=== PATIENT | female | born 1970 | race American Indian/Alaskan Native ===

== ENCOUNTER 2019-11-04 11:50 | Outpatient (CLI) | payer MEDICAID ==
[2019-11-04 12:14] LABS: Hematocrit 39.8 % (30.3-42.9); Hemoglobin 13.5 gm/dl (10.1-14.3); Mean Corpuscular HGB Conc 34 % (30-34); Mean Corpuscular Volume 85 fl (79-97); Platelet Count 337 K/mm3 (140-440); Red Blood Count 4.71 M/mm3 (3.65-5.03); Red Cell Distribution Width 13.5 % (13.2-15.2)
[2019-11-04 12:29] LABS: Alanine Aminotransferase 32 units/L (7-56); Albumin 4.2 g/dL (3.9-5); Blood Urea Nitrogen 13 mg/dL (7-17); Calcium 9.7 mg/dL (8.4-10.2); Hemolysis Index 2; Iron 100 ug/dL (37-170); Total Iron Binding Capacity 231 mcg/dL (250-450)
[2019-11-04 12:30] LABS: % Iron Saturation 43.29 %; BUN/Creatinine Ratio 26
[2019-11-04 13:07] LABS: Anisocytosis Few; Platelet Estimate Consistent w Auto; Total Cells Counted 100
== END 2019-11-04 11:51 | disposition home or self-care (01) ==
LOC: LAB 11:50
PROVIDERS: ATTEND Surgery
DX: Z00.00 Encounter for general adult medical examination without abnormal findings (principal); K30 Functional dyspepsia; D50.9 Iron deficiency anemia, unspecified; E11.9 Type 2 diabetes mellitus without complications; E61.8 Deficiency of other specified nutrient elements
CPT/HCPCS: 36415; 80053; 82306; 82607; 83036; 83550; 83970; 84425; 85007; 85025

== ENCOUNTER 2020-02-19 11:41 | Outpatient (CLI) | payer MEDICAID ==
--- NOTE | 2020-02-19 14:12 | Fluoroscopy Report ---
UPPER GI HISTORY: FUNCTIONAL DYSPEPSIA. TECHNIQUE: Single and double contrast barium technique utilized to evaluate the esophagus, stomach, and duodenal C-loop. FINDINGS: To begin the exam, swallowing was evaluated in the lateral position under direct fluorosco py. Swallowing was normal. No mucosal irregularity, mass, mass effect, or critical stenosis. There were no abnormal tertiary c ontractions as seen with dysmotility. No gastroesophageal reflux. IMPRESSION: Unremarkable exam. Fluoroscopic time: 2 minutes Number of fluoroscopic images: 16 Signer Name: Ezio Meadows Jr, MD Signed: 02/19/2020 2:07 PM Workstation Name: [id number]
== END 2020-02-19 11:42 | disposition home or self-care (01) ==
LOC: FLUORO 11:41
PROVIDERS: ATTEND Surgery
DX: K30 Functional dyspepsia (principal)
CPT/HCPCS: 74240

== ENCOUNTER 2020-03-02 06:10 | Day surgery (SDC) | payer MEDICAID ==
[2020-03-02] MEDS ORDERED: SODIUM CHLORIDE 0.9% 1000 ML 1,000 ML IV SCH (07:00)
--- NOTE | 2020-03-02 07:26 | Anesthesia Day of Surgery ---
Anesthesia Day of Surgery - Day of Surgery Patient Examined: Yes Patient H&P Reviewed: Yes Patient is NPO: Yes
--- NOTE | 2020-03-02 07:26 | Anesthesia Consultation ---
Anesthesia Consult and Med Hx Date of service: 03/02/20 - Airway Anesthetic Teeth Evaluation: Good ROM Head & Neck: Adequate Mental/Hyoid Distance: Adequate Mallampati Class: Class III Intubation Access Assessment: Possibly Difficult - Pre-Operative Health Status ASA Pre-Surgery Classification: ASA3 Proposed Anesthetic Plan: MAC - Pulmonary Hx Sleep Apnea: Yes (uses CPAP) - Gastrointestinal Hx Gastroesophageal Reflux Disease: Yes - Endocrine Hx Non-Insulin Dependent Diabetes: Yes - Other Systems Hx Obesity: Yes (Morbid obesity, BMI 49.5)
[2020-03-02] MEDS ORDERED: propofoL 200 MG/20 ML VIAL IV ONE (07:44)
[2020-03-02] MEDS ORDERED: SODIUM CHLORIDE 0.9% 1000 ML IV SOLN IV ONE (08:08)
[2020-03-02] MEDS ORDERED: LIDOCAINE MPF (2%) 20 MG/1 ML VIAL 5 ML ONE (08:11)
--- NOTE | 2020-03-02 08:25 | Discharge Summary ---
Providers - Providers Date of Admission: 03/02/2020 Date of discharge: 03/02/20 Attending physician: SHEKHAR TOMAS MD Primary care physician: CIARA ALVA MD Hospitalization Reason for admission: EGD as part of pre-op planning for bariatric surgery Procedures: EGD Hospital course: Pt presented for a pre-op EGD as part of planning for up coming bariatric surgery. Procedure was uneventful and pt recovered well and was discharged to home. Disposition: DC-01 TO HOME OR SELFCARE Core Measure Documentation - Palliative Care Palliative Care/ Comfort Measures: Not Applicable - Core Measures Any of the following diagnoses?: none Exam - Physical Exam Narrative exam: unchanged from pre-op - Constitutional Vitals: Temp Pulse Resp BP Pulse Ox 97.6 F 83 16 136/85 98 03/02/20 07:15 03/02/20 07:15 03/02/20 07:15 03/02/20 07:15 03/02/20 07:15 Plan Activity: advance as tolerated Diet: low carbohydrate Follow up with: CIARA ALVA MD [Primary Care Provider] - 7 Days
--- NOTE | 2020-03-02 08:27 | Operative Report ---
Operative Report Operative Report: DATE: 03/02/2020 SURGERY: Upper endoscopy. SURGEON: Sanam Go M.D. PROCEDURE: EGD with biopsy PRE OP DX: morbid obesity, GERD POST OP DX: morbid obesity, GERD TYPE OF ANESTHESIA: MAC. ESTIMATED BLOOD LOSS: None. COMPLICATIONS: None. SPECIMENS REMOVED: antral biopsy FINDINGS: 1. Small hiatal hernia. 2. antral gastritis 3. Otherwise, normal esophagus and first portion of duodenum. INDICATIONS:INDICATION FOR PROCEDURE: Patient is a 49-year-old female with a long history of morbid obesity. She is planned to have a weight loss procedure and is here for preoperative planning EGD. PROCEDURE DETAILS: After consent was reviewed, patient was taken back to the operating room where patient was placed in the left lateral decubitus position and a bite block was placed in the mouth. After a time-out was called, MAC anesthesia was initiated. I then passed the endoscope into her oropharynx, into her esophagus, visualized the entire esophagus, which was all within normal limits. Z-line was noted to about 40cm from incisors. I then visualized the stomach and the first portion of the duodenum and there were no abnormalities I could clearly visualize. A cold forceps biopsy of the antrum was taken and will be sent to pathology to evaluate for H.pylori. I then retroflexed the scope in the stomach and visualized the hiatus and I could see a small hiatal hernia. I then desufflated the stomach and removed the endoscope. Patient tolerated procedure well and was transferred to recovery room in good and stable condition.
[2020-03-02 09:01] VITALS: BP 119/69
--- NOTE | 2020-03-02 09:01 | Post Anesthesia Evaluation ---
- Post Anesthesia Evaluation Patient Participated: Yes Airway Patent: Yes Stable Respiratory Function: Yes Nausea/Vomiting: No Temp > 96.8F: Yes Pain Manageable: Yes Adequeate Hydration: Yes Anesthesia Complications: No Block Receding Appropriately: Not Applicable Patient on Ventilator: No
== END 2020-03-02 06:11 | disposition home or self-care (01) ==
LOC: GIO 06:10
PROVIDERS: ATTEND Surgery
DX: K21.9 Gastro-esophageal reflux disease without esophagitis (principal); E66.01 Morbid (severe) obesity due to excess calories; K44.9 Diaphragmatic hernia without obstruction or gangrene; K29.50 Unspecified chronic gastritis without bleeding; G47.30 Sleep apnea, unspecified; E11.9 Type 2 diabetes mellitus without complications; Z68.42 Body mass index [BMI] 45.0-49.9, adult; Z88.0 Allergy status to penicillin; Z98.890 Other specified postprocedural states
CPT/HCPCS: 43239; 82962; 88305; J2704; J7030

== ENCOUNTER 2020-04-29 09:00 | Outpatient (CLI) | payer MEDICAID ==
--- NOTE | 2020-04-29 10:04 | Anesthesia Consultation ---
Anesthesia Consult and Med Hx Date of service: 05/03/20 - Airway Anesthetic Teeth Evaluation: Good ROM Head & Neck: Adequate Mental/Hyoid Distance: Adequate Mallampati Class: Class II Intubation Access Assessment: Good - Pre-Operative Health Status ASA Pre-Surgery Classification: ASA3 Proposed Anesthetic Plan: General - Pulmonary Hx Respiratory Symptoms: No (+2FS) Hx Sleep Apnea: Yes - Cardiovascular System Hx Coronary Artery Disease: No - Central Nervous System Hx Seizures: Yes (Unsure, states it is possible) Hx Psychiatric Problems: No - Gastrointestinal Hx Gastroesophageal Reflux Disease: Yes (Improved now) - Endocrine Hx Non-Insulin Dependent Diabetes: Yes - Other Systems Hx Cancer: No Hx Obesity: Yes (Morbid obesity, BMI 49.5) - Additional Comments Anesthesia Medical History Comments: +Cardiac and Medical clearances
[2020-04-29 10:10] LABS: Hematocrit 36.9 % (30.3-42.9); Mean Corpuscular HGB Conc 35 % (30-34); Mean Corpuscular Volume 84 fl (79-97); Platelet Count 306 K/mm3 (140-440); Red Cell Distribution Width 13.2 % (13.2-15.2)
[2020-04-29 10:32] LABS: Alanine Aminotransferase 47 units/L (7-56); BUN/Creatinine Ratio 24; Blood Urea Nitrogen 12 mg/dL (7-17); Hemolysis Index 0
[2020-04-29 17:21] VITALS: BP 138/86
[2020-05-03] MEDS ORDERED: ENOXAPARIN 40 MG/0.4 ML INJ SUB-Q NR (06:00)
[2020-05-03] MEDS ORDERED: LACTATED RINGERS 1,000 ML IV SCH (06:00)
[2020-05-03] MEDS ORDERED: ACETAMINOPHEN 325 MG/10.15 ML ORAL LIQD UNIT DOSE PO NR (06:00)
[2020-05-03] MEDS ORDERED: metroNIDAZOLE/NS 500 MG/100 ML 500 MG/100 ML BAG IV NR (06:00)
[2020-05-03] MEDS ORDERED: GABAPENTIN 500 MG/10 ML ORAL LIQD PO NR (06:00)
[2020-05-03] MEDS ORDERED: SCOPOLAMINE TRANSDERMAL PATCH 72 HR TD SCH (10:00)
[2020-05-07] MEDS ORDERED: BUPIVACAINE/PF (0.5%) 5 MG/1 ML 30 ML VIAL INFILTRATI ONE (07:16)
[2020-05-10] MEDS ORDERED: LIDOCAINE MPF (2%) 20 MG/1 ML VIAL 5 ML ONE (07:10)
[2020-05-10] MEDS ORDERED: propofoL 200 MG/20 ML VIAL IV ONE (07:10)
[2020-05-10] MEDS ORDERED: KETAMINE/STERILE WATER 50 MG/ML SYRINGE ONE (07:10)
[2020-05-10] MEDS ORDERED: ROCURONIUM 50 MG/5 ML INJ IV ONE (08:39)
[2020-05-10] MEDS ORDERED: PHENYLEPHRINE/NS 1,000 MCG/10 ML SYRINGE (OR USE) IV ONE ×2 (08:39→09:10)
[2020-05-10] MEDS ORDERED: KETOROLAC 30 MG/1 ML INJ ONE (09:50)
[2020-05-10] MEDS ORDERED: LACTATED RINGERS 1,000 ML ONE (10:03)
[2020-05-10] MEDS ORDERED: ONDANSETRON 4 MG/2 ML INJ ONE (10:05)
[2020-05-10] MEDS ORDERED: dexAMETHasone 20 MG/5 ML VIAL ONE (10:05)
[2020-05-10] MEDS ORDERED: NEOSTIGMINE 10MG/10 ML INJ MDV ONE (10:10)
[2020-05-10] MEDS ORDERED: GLYCOPYRROLATE 0.4 MG/2 ML INJ ONE ×2 (10:10)
== END 2020-04-29 10:00 | disposition home or self-care (01) ==
LOC: LAB 09:00 → EDSTATUS 05-03 07:30
PROVIDERS: ATTEND Surgery
DX: U07.1 COVID-19 (principal); E66.01 Morbid (severe) obesity due to excess calories
CPT/HCPCS: 36415; 80053; 85027; U0003

== ENCOUNTER 2020-05-10 06:05 | Inpatient (IN) | payer MEDICAID ==
--- NOTE | 2020-05-10 06:51 | Anesthesia Day of Surgery ---
Anesthesia Day of Surgery - Day of Surgery Patient Examined: Yes Patient H&P Reviewed: Yes Patient is NPO: Yes
[2020-05-10] MEDS ORDERED: MIDAZOLAM 2 MG/2 ML INJ IV NR (07:00)
[2020-05-10] MEDS ORDERED: ENOXAPARIN 40 MG/0.4 ML INJ SUB-Q NR (07:00)
[2020-05-10] MEDS ORDERED: ceFAZolin/STERILE WATER 2 GM/20 ML SYRINGE IV NR (07:00)
[2020-05-10] MEDS ORDERED: SCOPOLAMINE TRANSDERMAL PATCH 72 HR TD NR (07:00)
[2020-05-10] MEDS ORDERED: ACETAMINOPHEN 325 MG/10.15 ML ORAL LIQD UNIT DOSE PO NR (07:00)
[2020-05-10] MEDS ORDERED: LACTATED RINGERS 1,000 ML ONE (07:07)
[2020-05-10] MEDS ORDERED: MAGNESIUM SULFATE 2 GM/50 ML BAG IV ONE (07:23)
[2020-05-10] MEDS ORDERED: ONDANSETRON 4 MG/2 ML INJ IV PRN ×2 (07:30→10:26)
[2020-05-10] MEDS ORDERED: LACTATED RINGERS 1,000 ML IV SCH (07:30)
[2020-05-10] MEDS ORDERED: HYDROmorphone 1 MG/1 ML INJ IV PRN ×2 (07:30)
[2020-05-10] MEDS ORDERED: LIDOCAINE 2%/EPINEPHRINE 1:100,000 VIAL (20 ML) INFILTRATI ONE (07:39)
[2020-05-10] MEDS ORDERED: BUPIVACAINE/PF (0.25%) 2.5 MG/ML 30 ML VIAL INFILTRATI ONE ×3 (07:39→08:56)
[2020-05-10] MEDS ORDERED: SODIUM CHLORIDE P/F VIAL 10 ML 0 ML ONE (07:39)
[2020-05-10] MEDS ORDERED: SODIUM CHLORIDE P/F VIAL 10 ML 10 ML ONE (07:40)
[2020-05-10] MEDS ORDERED: propofoL 200 MG/20 ML VIAL IV ONE (08:00)
[2020-05-10] MEDS ORDERED: NEOSTIGMINE 10MG/10 ML INJ MDV ONE (08:00)
[2020-05-10] MEDS ORDERED: GABAPENTIN 500 MG/10 ML ORAL LIQD PO NR (08:00)
[2020-05-10] MEDS ORDERED: PHENYLEPHRINE/NS 1,000 MCG/10 ML SYRINGE (OR USE) IV ONE (08:00)
[2020-05-10] MEDS ORDERED: LACTATED RINGERS 1000 ML IV SOLN ONE (08:00)
[2020-05-10] MEDS ORDERED: dexAMETHasone 20 MG/5 ML VIAL ONE (08:00)
[2020-05-10] MEDS ORDERED: ONDANSETRON 4 MG/2 ML INJ ONE (08:00)
[2020-05-10] MEDS ORDERED: LIDOCAINE MPF (2%) 20 MG/1 ML VIAL 5 ML ONE (08:00)
[2020-05-10] MEDS ORDERED: GLYCOPYRROLATE 0.4 MG/2 ML INJ ONE (08:00)
[2020-05-10] MEDS ORDERED: metroNIDAZOLE/NS 500 MG/100 ML 500 MG/100 ML BAG IV NR (08:00)
[2020-05-10] MEDS ORDERED: KETOROLAC 30 MG/1 ML INJ ONE (08:00)
[2020-05-10] MEDS ORDERED: ROCURONIUM 50 MG/5 ML INJ IV ONE (08:00)
[2020-05-10] MEDS ORDERED: KETAMINE/STERILE WATER 50 MG/ML SYRINGE ONE (08:00)
[2020-05-10] MEDS ORDERED: LIDOCAINE (1%) 10 MG/1 ML VIAL 20 ML MDV ONE (08:10)
[2020-05-10] MEDS ORDERED: LIDOCAINE (1%) 10 MG/1 ML VIAL 20 ML MDV INFILTRATI ONE (08:56)
[2020-05-10] MEDS ORDERED: SODIUM CHLORIDE 0.9% IRRIG SOLN 2000 ML IR ONE (08:57)
[2020-05-10] MEDS ORDERED: SODIUM CHLORIDE 0.9% IRR 1,500 ML BOTTLE IR ONE (08:57)
[2020-05-10] MEDS ORDERED: SUGAMMADEX SODIUM 200 MG/2 ML VIAL IV ONE (10:12)
[2020-05-10] MEDS ORDERED: hydrALAZINE 20 MG/1 ML INJ IV PRN (10:26)
[2020-05-10] MEDS ORDERED: METOCLOPRAMIDE 10 MG/2 ML INJ IV PRN (10:26)
[2020-05-10] MEDS ORDERED: MORPHINE 2 MG/1 ML INJ IV PRN (10:26)
[2020-05-10] MEDS ORDERED: SIMETHICONE 80 MG CHEW TAB PO PRN (10:26)
--- NOTE | 2020-05-10 10:43 | Operative Report ---
Operative Report Operative Report: DATE OF PROCEDURE: 05/10/2020 SURGEON: Sanam Go MD DOCTOR OF AUDIOLOGY: Juvenal Rome MD, [facility] PREOPERATIVE DIAGNOSIS: Morbid obesity. POSTOPERATIVE DIAGNOSES: Morbid obesity PROCEDURES PERFORMED: 1. Laparoscopic gastric bypass. 2. Hiatal hernia repair 3. EGD. ANESTHESIA: General endotracheal tube intubation, TAP block SPECIMENS: None. ESTIMATED BLOOD LOSS: Less than 10 mL. FINDINGS: hiatal hernia. COMPLICATIONS: None. INDICATION: Ms. Murphy is a 49-year-old female with history of morbid obesity, and obesity related co-morbidities. She presented today for gastric bypass. She signed informed consent and expressed understanding of risks and benefits. DESCRIPTION OF PROCEDURE: Patient was brought to the OR suite, laid in supine position. Bilateral lower extremity SCDs were placed. General anesthesia was induced via successful endotracheal tube intubation. Patient's abdomen was prepped and draped in sterile fashion. A veress needle was used to insuflate the abdomen to a pressure of 18mmHg via a stab incision in the in L subcostal area. Using Optiview technique, a 5-mm trocar was placed into the abdominal cavity under direct vision superior and to the left of the umbilicus. There was noted to be no gross injury to any intraabdominal structures. 4 working trocars were placed under direct visualization, 12 mm in the right mid abdomen mid clavicular line and three 5-mm trocars in the right upper quadrant, epigastric, left upper quadrant. At this time a TAP block was performed in bilateral midaxillary lines with 0.25% marcaine. There was noted to be some omental adhesions to the anterior abdominal wall that were released with harmonic scalpel. At this time, the ligament of Treitz identified and followed down approximately 75 cm and the jejunum was transected, after the omentum was split with the Harmonic scalpel . The distal segment of jejunum was then traced for approximately 100 cm and a stapled [id number] jejunojejunostomy was performed. The common enterotomy was closed with 2 firings of the endoscopic stapler. The mesenteric defect was closed with running non-absorbable v-loc suture. This anastomosis was found to be patent without kink, obstruction or bleeding. At this time, the patient was placed in steep reverse Trendelenburg position. A liver retractor was placed through the epigastric port to elevate the left lateral lobe of the liver. A small gastric pouch was formed measuring about 4cm from the hiatus with serial firings of the blue staple load. There was noted to be a hiatal hernia defect through which the proximal gastric pouch was herniating above the level of the diaphragm. The left and right crura were skeletonized, and the sac attachments released until the gastric pouch rested in the abdominal cavity without tension for about 2cm. An anterior cruraplasty was performed with a U-stitch using surg idac suture. The Deng limb was then brought in an antegastric antecolic fashion and secured with 2 stay sutures to the gastric pouch. After this, the enterotomies were made with Harmonic scalpel, and a [id number] stapled gastrojejunostomy was performed with a mechanical stapler. With a common anastamosis measuring about 20mm. After this, a 2-layer running closure using absorbable v-loc suture was done. The first being mucosal approximation. Prior to completion of the first layer, I passed an EGD scope beyond the anastomosis to act as a stent. The first layer was completed, the second was then performed. After this, the EGD was retracted slightly. A bowel clamp was placed on the proximal Deng limb. The anastomosis was submerged under saline. Via intraluminal EGD insufflation, there was noted be no bubbles in the saline indicating an air tight anastomosis. There was noted to be no obstruction or bleeding intraluminally in the pouch or the anastomosis. At this time, the scope was removed. The saline was aspirated. Tiseel was placed over the anastomosis. All trocars were removed under direct visualization and the abdomen was then desufflated. The 12mm trocars were closed at the fascial layer with #1 PDS using a suture passer device. The skin incisions were closed with 4-0 Monocryl followed by Dermabond dressings. Patient was awoken and taken to recovery in stable condition. All counts were correct.
[2020-05-10] MEDS ORDERED: diphenhydrAMINE 50 MG/ML VIAL IV ONE (11:31)
[2020-05-10] MEDS: KETOROLAC 30 MG/1 ML INJ IV SCH ×2 (11:36→16:27)
--- NOTE | 2020-05-10 12:50 | Post Anesthesia Evaluation ---
- Post Anesthesia Evaluation Patient Participated: Yes Airway Patent: Yes Stable Respiratory Function: Yes Nausea/Vomiting: Yes Temp > 96.8F: Yes Pain Manageable: Yes Adequeate Hydration: Yes Anesthesia Complications: No Block Receding Appropriately: Yes Patient on Ventilator: No
[2020-05-10] MEDS: metroNIDAZOLE/NS 500 MG/100 ML 500 MG/100 ML BAG IV SCH ×2 (16:34→23:28)
[2020-05-10] MEDS: LACTATED RINGERS 1,000 ML IV SCH (16:38)
[2020-05-10] MEDS: HYDROcodone/Acetaminophen 7.5-325MG-15ML ORAL LIQD PO PRN (23:28)
[2020-05-11 05:27] LABS: Hemoglobin 12.7 gm/dl (10.1-14.3); Lymphocytes # (Auto) 1.1 K/mm3 (1.2-5.4); Lymphocytes % (Auto) 13.3 % (13.4-35.0); Mean Corpuscular HGB Conc 34 % (30-34); Mean Corpuscular Volume 86 fl (79-97); Monocytes # (Auto) 0.5 K/mm3 (0.0-0.8); Monocytes % (Auto) 5.6 % (0.0-7.3); Platelet Count 229 K/mm3 (140-440); Red Blood Count 4.32 M/mm3 (3.65-5.03); Red Cell Distribution Width 13.2 % (13.2-15.2)
[2020-05-11] MEDS: LACTATED RINGERS 1,000 ML IV SCH (05:38)
[2020-05-11 05:42] LABS: Alanine Aminotransferase 51 units/L (7-56); Albumin 3.6 g/dL (3.9-5); Blood Urea Nitrogen 10 mg/dL (7-17); Calcium 8.8 mg/dL (8.4-10.2); Hemolysis Index 7
[2020-05-11 05:52] LABS: BUN/Creatinine Ratio 17
[2020-05-11] MEDS: KETOROLAC 30 MG/1 ML INJ IV SCH ×2 (06:02→07:52)
[2020-05-11] MEDS: metroNIDAZOLE/NS 500 MG/100 ML 500 MG/100 ML BAG IV SCH (06:02)
--- OUTSIDE RECORDS SUMMARY | 2020-05-11 07:24 | External Medical Summary ---
:1970 Author Organization [facility], [facility] Address [address] [place] [address] Care Team Providers Name Role Phone Sanam Go Unavailable [phone] PROBLEMS Type Condition ICD9-CM [id number] Onset Condition W/U Status Risk SNOM ED Notes Code Code Dates Status Code Problem Body mass Z68.43 Active confirmed 053903225 index (BMI) 50.0-59.9, adult Problem Dietary Z71.3 Active confirmed 633475692 counseling and surveillance Problem Functional K30 Active confirmed 8142831 dyspepsia Problem Sleep apnea, G47.30 Active confirmed 2348531 6 unspecified Problem Morbid E66.01 Active confirmed 957499040 (severe) obesity due to excess calories Problem Type 2 E11.9 Active confirmed 075245870 diabetes mellitus without complications Problem Gastro-esopha K21.9 Active confirmed 457475 005 geal reflux disease without esophagitis Problem Sleep G47.9 Active confirmed 82694122 disorder, unspecified ALLERGIES Allergen (clinical drug Drug/Non Drug Allergy Reaction Allergy Type Onset Date Status ingredient) documented on EMR penicillamine Penicillamine([facility] hives Drug Allergy Ac tive Code:[address]-19) IMMUNIZATIONS No Information SOCIAL HISTORY Sex Assigned At : Social History Observation Description Sex Assigned At Unknown REASON FOR REFERRAL from 1970 to 2020-05-10 Diagnosis 1 Type 2 diabetes mellitus wit hout complications (E11.9) Diagnosis 2 Morbid (severe) obesity due to excess calories (E66.01) Diagnosis 3 Gastro-esophageal reflux dis ease without esophagitis (K21.9) Diagnosis 4 Sleep disorder, unspecified (G47.9) Diagnosis 5 Body mass index (BMI) 50.0-5 9.9, adult (Z68.43) Diagnosis 6 Dietary counseling and surve illance (Z71.3) Diagnosis 7 Functional dyspepsia (K30) Diagnosis 8 Sleep apnea, unspecified (G4 7.30) Referral Organization [facility] Referring Provider First Name Sanam Referring Provider Last Name Abbi Referring Provider Specialty Surgery Referred Provider [facility], - Referral Priority Routine VITAL SIGNS No information MEDICATIONS Medication SIG (Take, Route, Frequency, Notes Start Date End Alfonso e Status Duration) Zofran 4 MG 1-2 tablet Orally every 4-6 hours Apr, Active prn nausea for 30 day(s) GlipiZIDE 10 MG 1 tablet 30 minutes before Active breakfast Orally Once a day for 30 day(s) Omeprazole 40 MG 1 capsule Orally Once a day for Apr, Active 30 day(s) Meloxicam 15 MG 1 tablet Orally Once a day for 30 Active day(s) PROCEDURES No Information RESULTS No Results REASON FOR VISIT Gastric Bypass MEDICAL (GENERAL) HISTORY Type Description Date Medical History morbid obesity Medical History diabetes mellitus Medical History Esophageal reflux Medical History chronic sleep disorder Medical History sleep apnea Surgical History (x4) 1995, 1997, 1998, 20 09 Surgical History Breast reduction 1984 Surgical History Partial Hysterectomy 2008 Hospitalization History as above Goals Section No Information Health Concerns No Information MEDICAL EQUIPMENT No Information MENTAL STATUS No Information FUNCTIONAL STATUS No Information ASSESSMENTS No Information PLAN OF TREATMENT Medication Medication Name Sig Start Date Stop Date Zofran 4 MG 1-2 tablet Orally every 4-6 hours prn nausea Apr, for 30 day(s) Omeprazole 40 MG 1 capsule Orally Once a day for 30 day(s) 2020 Referrals Referral Date Details Next Appt Details Provider Name:Sanam Go, 2020-05-0 8 01:00:00 PM, [address] [facility], [facility] Level [facility], [place], [place], [address], Insurance Providers Payer Name Payer Payer Insured Patient Coverage Coverage End Address Phone Name Relationship to Start Date Alfonso e Insured [employer] [address] [address] [phone] Ramirez Murphy [facility] MEDICAID [address] [id number]
[2020-05-11 07:57] VITALS: BP 108/61
[2020-05-11] MEDS ORDERED: ENOXAPARIN 40 MG/0.4 ML INJ SUB-Q SCH (08:00)
[2020-05-11] MEDS ORDERED: ALOGLIPTIN BENZOATE 12.5 MG PO SCH (10:00)
[2020-05-11] MEDS: HYDROcodone/Acetaminophen 7.5-325MG-15ML ORAL LIQD PO PRN (13:17)
--- NOTE | 2020-05-11 13:34 | Discharge Summary ---
Providers - Providers Date of Admission: 05/10/20 06:05 Date of discharge: 05/11/20 Attending physician: SHEKHAR TOMAS MD 05/10/20 10:26 Physical Therapy Evaluation and Treat [CONS] Routine Comment: Reason For Exam: s/p bariatric surgery Primary care physician: CIARA ALVA MD Hospitalization Reason for admission: s/p lap gastric bypass Condition: Good Procedures: lap gastric bypass with hiatal hernia repair Hospital course: 49 year old female who was admitted after an uneventful lap gastric bypass with hiatal hernia repair. She did well after surgery having vitals WNL and remained afebrile. Her labs on POD#1 were within normal limits as well. She was ambulating well and tolerating clear liquids without difficulty. Pain was well controlled. She was discharged to home to follow up in the office in two weeks. She will be on clear liquids for the first week and advance as per the bariatric protocol. Disposition: DC- TO HOME OR SELFCARE Core Measure Documentation - Palliative Care Palliative Care/ Comfort Measures: Not Applicable - Core Measures Any of the following diagnoses?: none Exam - Constitutional Vitals: Temp Pulse Resp BP Pulse Ox 98.0 F 84 17 108/61 95 05/11/20 07:12 05/11/20 07:12 05/11/20 07:52 05/11/20 07:12 05/11/20 07:12 General appearance: Present: no acute distress, obese - Respiratory Respiratory effort: normal - Cardiovascular Heart Sounds: Present: S1 & S2 - Extremities Extremities: no ischemia - Abdominal General gastrointestinal: Present: soft, non-distended, other (incisions c/d/i, appropriatley tender to palpation) Plan Activity: advance as tolerated Diet: clear liquids Wound: open to air, keep clean and dry Special Instructions: no heavy lifting Follow up with: CIARA ALVA MD [Primary Care Provider] - 7 Days
--- NOTE | 2020-05-11 16:33 | Post Anesthesia Evaluation ---
- Post Anesthesia Evaluation Patient Participated: Yes Airway Patent: Yes Stable Respiratory Function: Yes Nausea/Vomiting: No Temp > 96.8F: Yes Pain Manageable: Yes Adequeate Hydration: Yes Anesthesia Complications: No Block Receding Appropriately: Yes Patient on Ventilator: No Other Comments: Seen by Lan CARROLL
== END 2020-05-11 16:12 | disposition home or self-care (01) | DRG 621 ==
LOC: 3A 06:05 → 3B 11:10 → 3B-SURG 11:49
PROVIDERS: ADMIT Surgery; ATTEND Surgery
PROC: 0D164ZA Bypass Stomach to Jejunum, Percutaneous Endoscopic Approach (ICD-10-PCS; principal; 2020-05-10)
PROC: 0BQT4ZZ Repair Diaphragm, Percutaneous Endoscopic Approach (ICD-10-PCS; 2020-05-10)
PROC: 0DJ08ZZ Inspection of Upper Intestinal Tract, Via Natural or Artificial Opening Endoscopic (ICD-10-PCS; 2020-05-10)
PROC: 3E0T3BZ Introduction of Anesthetic Agent into Peripheral Nerves and Plexi, Percutaneous Approach (ICD-10-PCS; 2020-05-10)
PROC: 3E0T33Z Introduction of Anti-inflammatory into Peripheral Nerves and Plexi, Percutaneous Approach (ICD-10-PCS; 2020-05-10)
DX: E66.01 Morbid (severe) obesity due to excess calories (principal); K44.9 Diaphragmatic hernia without obstruction or gangrene; G47.33 Obstructive sleep apnea (adult) (pediatric); K21.9 Gastro-esophageal reflux disease without esophagitis; E11.9 Type 2 diabetes mellitus without complications; Z90.710 Acquired absence of both cervix and uterus; Z68.42 Body mass index [BMI] 45.0-49.9, adult
CPT/HCPCS: 36415; 80053; 82962; 85025; 94660; G0378; A4217; C9250; J1100; J1200; J1650; J1885; J2250; J2370; J2405; J2704; J2710; J2765; J3475; J3490; J7120

== ENCOUNTER 2020-06-10 10:41 | Outpatient (CLI) | payer MEDICAID ==
[2020-06-10 11:13] LABS: Hematocrit 38.6 % (30.3-42.9); Hemoglobin 12.9 gm/dl (10.1-14.3); Mean Corpuscular HGB Conc 33 % (30-34); Mean Corpuscular Volume 86 fl (79-97); Platelet Count 234 K/mm3 (140-440); Red Blood Count 4.47 M/mm3 (3.65-5.03); Red Cell Distribution Width 13.8 % (13.2-15.2)
[2020-06-10 11:36] LABS: Alanine Aminotransferase 44 units/L (7-56); Albumin 3.7 g/dL (3.9-5); Blood Urea Nitrogen 9 mg/dL (7-17); Calcium 9.3 mg/dL (8.4-10.2); Chol/HDL Ratio 2.24 %; HDL Cholesterol 50 mg/dL (40-59); Hemolysis Index 6; Iron 59 ug/dL (37-170); LDL Cholesterol,Direct 51 mg/dL (50-130); Total Iron Binding Capacity 198 mcg/dL (250-450)
[2020-06-10 11:43] LABS: BUN/Creatinine Ratio 15
[2020-06-10 11:54] LABS: Total Cells Counted 100
[2020-06-10 11:55] LABS: Platelet Estimate Consistent w Auto; RBC Morphology Normal
== END 2020-06-10 10:42 | disposition home or self-care (01) ==
LOC: LAB 10:41
PROVIDERS: ATTEND Surgery
DX: E11.9 Type 2 diabetes mellitus without complications (principal); E66.01 Morbid (severe) obesity due to excess calories; K30 Functional dyspepsia; Z98.84 Bariatric surgery status
CPT/HCPCS: 36415; 80053; 80061; 82306; 82607; 82728; 83036; 83550; 84425; 84443; 85007; 85025; 85730